=== PATIENT | male | born 1975 ===

== ENCOUNTER 2017-04-18 15:47 | Emergency (ER) | payer OTHER ==
[2017-04-18 15:56] VITALS: RESP 18; BMI 28.8
[2017-04-18] MEDS ORDERED: TDAP Vaccine 0.5 mL Syr IM ONE (16:05)
--- NOTE | 2017-04-18 17:30 | ED PDOC ---
Arrival/HPI <Farrukh Pedroza - Last Filed: 04/18/17 17:53> - General Historian: Patient - History of Present Illness Time/Duration: Prior to Arrival Symptom Onset: Sudden Symptom Course: Improving Quality: Aching, Burning Severity Level: Mild <Nikia Clark - Last Filed: 04/18/17 20:16> - General Chief Complaint: Abnormal Skin Integrity Time Seen by Provider: 04/18/17 15:55 - History of Present Illness Narrative History of Present Illness (Text): 04/18/17 17:27 41-year-old male presents today with a laceration to the left side of the chest. While at work a cement saw rebounded upward and hit the patient in the left side of the chest at the collarbone. Patient denies shortness of breath. He is complaining of pain to the laceration and abrasion site. He is unsure of his last tetanus shot. Incident occurred prior to arrival. No medications have been taken for pain at home. No other complaints (Nikia Clark) Past Medical History - Provider Review Nursing Documentation Reviewed: Yes - Travel History Have you recently traveled outside [place] w/in the past 3 mons?: No - Tetanus Immunization Tetanus Immunization: Unknown - Psychiatric Hx Substance Use: No <Nikia Clark - Last Filed: 04/18/17 20:16> Family/Social History - Physician Review Nursing Documentation Reviewed: Yes Family/Social History: Unknown Family HX Smoking Status: Light Smoker < 10 Cigarettes Daily Hx Alcohol Use: Yes Frequency of alcohol use: Socially Hx Substance Use: No <Nikia Clark - Last Filed: 04/18/17 20:16> Allergies/Home Meds <Farrukh Pedroza - Last Filed: 04/18/17 17:53> <Nikia Clark - Last Filed: 04/18/17 20:16> Allergies/Adverse Reactions: Allergies No Known Allergies Allergy (Verified 04/18/17 15:56) Review of Systems - Review of Systems Constitutional: absent: Fatigue, Fevers ENT: absent: Sore Throat Respiratory: absent: SOB, Cough Cardiovascular: Chest Pain (at laceration site) Gastrointestinal: absent: Abdominal Pain, Diarrhea, Vomiting Skin: Laceration Neurological: absent: Headache, Dizziness Psychiatric: absent: Anxiety, Depression, Suicidal Ideation <Nikia Clark - Last Filed: 04/18/17 20:16> Physical Exam Vital Signs Reviewed: Yes Temperature: Afebrile Blood Pressure: Normal Pulse: Regular Respiratory Rate: Normal Appearance: Positive for: Well-Appearing, Non-Toxic, Comfortable Pain Distress: None Mental Status: Positive for: Alert and Oriented X 3 - Systems Exam Head: Present: Atraumatic Mouth: Present: Moist Mucous Membranes Neck: Present: Normal Range of Motion, Trachea Midline. No: MIDLINE TENDERNESS , Paraspinal Tenderness Respiratory/Chest: Present: Clear to Auscultation, Good Air Exchange, Tender to Palpation (+ ttp over left anterior chest; there is a large 6cm superficial abrasion from the sternum to the proximal 1/3 of the left clavicle; there is a 3cm linear laceration just superior of the proximal 3rd of the left clavicle. laceration does not extend to bone, no vascular injury noted. no active bleeding. ), Other (no crepitus). No: Respiratory Distress, Accessory Muscle Use Cardiovascular: Present: Regular Rate and Rhythm, Normal S1, S2. No: Murmurs Abdomen: No: Tenderness, Distention Neurological: Present: GCS=15, Speech Normal Skin: Present: Warm, Dry Psychiatric: Present: Alert, Oriented x 3 <Nikia Clark - Last Filed: 04/18/17 20:16> Vital Signs Temp Pulse Resp BP Pulse Ox 04/18/17 18:45 97.5 F L 59 L 18 122/87 97 04/18/17 15:55 98.8 F 82 18 128/68 95 Medical Decision Making <Farrukh Pedroza - Last Filed: 04/18/17 17:53> Reassessment Condition: Re-examined, Improved <Nikia Clark - Last Filed: 04/18/17 20:16> ED Course and Treatment: 04/18/17 17:35 41yr old male with superficial laceration to left anterior chest/proximal 3rd clavicle. NO active bleeding. tetanus updated tramadol given for pain wound irrigated with copious amounts of NS using high pressure irrigation. cxr: wnl, no pneumothorax left clavicle xray: No fracture pt was seen and evaluated by dr. pedroza Laceration repair: 3-0 Vicryl subcutaneous interrupted sutures placed. 5 nylon sutures placed. total 8 sutures keflex given po Patient was advised to keep the wound clean and dry and return in 2 days for wound check. Patient was advised me to return if symptoms worsen or persist or if new concerning symptoms develop: High fevers, increasing pain, redness, swelling, chest pain, difficulty breathing. Or if any other concerning symptoms develop. Patient was advised to take antibiotics 4 times daily 7 days. Patient was advised to follow-up with a surgeon within the next 2 days. Patient verbalizes understanding of discharge instructions and need for immediate followup. all aspects of this case were discussed the attending of record. Impression: Contusion chest, abrasion chest, laceration anterior chest Motrin every 6 hours as needed for pain Keflex 1 capsule 4 times daily 7 days Return in 2 days for wound check Return in 10-14 days for suture removal Apply bacitracin twice daily to the affected area Return immediately if signs of infection develop: High fevers, increasing pain, increasing redness, increasing swelling, purulent discharge. Return immediately if he develops any chest pain or difficulty breathing. Follow-up with a surgeon within the next 2 days Follow-up with primary care physician within the next 2 days return if any other concerning symptoms develop. (Nikia Clark) - RAD Interpretation Radiology Orders: 04/18/17 16:04 CHEST TWO VIEWS (PA/LAT) [RAD] Stat CLAVICLE LEFT [RAD] Stat - Medication Orders Current Medication Orders: Discontinued Medications Cephalexin Monohydrate (Keflex) 500 mg PO STAT STA PRN Reason: Protocol Stop: 04/18/17 18:38 Last Admin: 04/18/17 18:44 Dose: 500 mg Tetanus/Reduced Diphtheria/Acell Pertussis (Boostrix Vaccine Inj) 0.5 ml IM .ONCE ONE Stop: 04/18/17 16:06 Last Admin: 04/18/17 16:43 Dose: 0.5 ml MAR Immunization Data Document 04/18/17 16:43 OCS (Rec: 04/18/17 16:44 OCS [id number]) Immunization Data Vaccine Lot Number [id number] Vaccine Expiration Date 01/28/19 Site Given Left Deltoid Tramadol HCl (Ultram) 50 mg PO STAT STA Stop: 04/18/17 16:06 Last Admin: 04/18/17 16:43 Dose: 50 mg MAR Pain Assessment Document 04/18/17 16:43 OCS (Rec: 04/18/17 16:43 OCS [id number]) Pain Reassessment Is this a pain reassessment? Yes Sleep Is patient sleeping during reassessment? No Presence of Pain Presence of Pain Yes Pain Scale Used Pain Scale Used Numeric Location Left, Right or Bilateral Bilateral Pain Location Body Site Chest Description Description Constant Re-Assess: [facility] Pain Assessment Document 04/18/17 17:43 OCS (Rec: 04/18/17 18:52 OCS [id number]) Pain Reassessment Is this a pain reassessment? Yes Sleep Is patient sleeping during reassessment? No Presence of Pain Presence of Pain Yes Pain Scale Used Pain Scale Used Numeric Location Left, Right or Bilateral Left Pain Location Body Site Chest Description Description Constant Intensity of Pain at present 4 Procedure: Wound Repair - Procedure Procedure: Wound Repair: laceration, left chest - Consent Obtained Consent obtained: Verbal - Performed by Performed by: Mid-level Provider - Indications Indication(s):: Laceration - Location Shape:: Linear Dimensions Length cm: 3cm - Anesthetic Technique Anesthetic Technique: Local Local/Regional Anesthetic:: Lidocaine 1% (3cc) - Wound Examination Wound Examination:: Other (no vascular, tendon or nerve injury. ) - Debris Debris:: None - Irrigated Irrigated with ml of normal saline: copious amounts of NS using high pressure irrigation - Complexity Complexity:: Intermediate (2 layer) - Wound repair method Sutures:: # (two 4.0 vicryl interrupted subcutaneous sutures placed. 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 <Farrukh Pedroza - Last Filed: 04/18/17 17:53> Disposition/Present on Arrival <Farrukh Pedroza - Last Filed: 04/18/17 17:53> - Present on Arrival Any Indicators Present on Arrival: No History of DVT/PE: No History of Uncontrolled Diabetes: No Urinary Catheter: No History of Decub. Ulcer: No History Surgical Site Infection Following: None - Disposition Have Diagnosis and Disposition been Completed?: Yes Disposition Time: 18:41 Patient Plan: Discharge <Nikia Clark - Last Filed: 04/18/17 20:16> - Disposition Diagnosis: Laceration of chest wall, Contusion, chest wall, Abrasion of chest Disposition: HOME/ ROUTINE Condition: GOOD Discharge Instructions (ExitCare): Laceration (ED), Contusion in Adults (ED) Additional Instructions: Motrin every 6 hours as needed for pain Keflex 1 capsule 4 times daily 7 days Return in 2 days for wound check Return in 10-14 days for suture removal Apply bacitracin twice daily to the affected area Return immediately if signs of infection develop: High fevers, increasing pain, increasing redness, increasing swelling, purulent discharge. Return immediately if he develops any chest pain or difficulty breathing. Follow-up with a surgeon within the next 2 days Follow-up with primary care physician within the next 2 days return if any other concerning symptoms develop. Prescriptions: Cephalexin [Keflex] 500 mg PO QID #28 capsule Ibuprofen [Motrin] 600 mg PO Q6H PRN #20 tab PRN Reason: pain/fever reduction Referrals: Alfonso Pires DO [Staff Provider] - Follow up with primary Bora Ellis MD [Medical Doctor] - Follow up with primary Jefferson Vidales MD [Staff Provider] - Follow up with primary [facility] [Outside] - Follow up with primary Forms: [employer] ([place]), WORK NOTE
[2017-04-18 18:47] VITALS: BP 122/87; PULSE 59; TEMP 97.5; O2SAT 97
--- NOTE | 2017-04-18 18:52 | RAD ---
HISTORY: laceration, left upper anterior chest COMPARISON: No prior. TECHNIQUE: Chest PA and lateral FINDINGS: LUNGS: No active pulmonary disease. PLEURA: No significant pleural effusion identified. No pneumothorax apparent. CARDIOVASCULAR: Normal. OSSEOUS STRUCTURES: No significant abnormalities. VISUALIZED UPPER ABDOMEN: Normal. OTHER FINDINGS: None. IMPRESSION: No active disease.
--- NOTE | 2017-04-18 18:54 | RAD ---
PROCEDURE: Radiographs of the left clavicle. HISTORY: laceration, chest by cement saw COMPARISON: None. FINDINGS: LEFT CLAVICLE: No fracture or focal lesion. JOINTS: Left acromioclavicular and glenohumeral joints are grossly unremarkable. SOFT TISSUES: Grossly unremarkable. OTHER FINDINGS: None. IMPRESSION: Normal radiographs of the left clavicle.
== END 2017-04-18 19:00 | disposition home or self-care (01) ==
LOC: ED 15:47
DX: S21.112A Laceration without foreign body of left front wall of thorax without penetration into thoracic cavity, initial encounter (principal); W29.8XXA Contact with other powered hand tools and household machinery, initial encounter; Y93.89 Activity, other specified; Y92.89 Other specified places as the place of occurrence of the external cause; Y99.0 Civilian activity done for income or pay; Z23 Encounter for immunization